=== PATIENT | female | born 1985 | race Caucasian/White ===

== ENCOUNTER → 2016-09-12 | Outpatient (CLI) | payer BC | LOC: ZCOL.LAB 15:00 | DX: R19.7 Diarrhea, unspecified (principal) ==

== ENCOUNTER → 2021-11-04 | Outpatient (CLI) | payer OTHER | LOC: COL.RAD 11:28 | DX: E04.1 Nontoxic single thyroid nodule (principal) ==

== ENCOUNTER → 2021-12-07 | Outpatient (CLI) | payer OTHER ==
[~2021-12-07] VITALS: Ht 170.2 cm; Wt 98.0 kg
[~2021-12-07] MED LIST: AMBIEN 5MG TABLE5 MG PO; FLOVENT 44MCG I13 GM IH; SINGULAIR 110 MG/TAB PO; XANAX 0.5MG0.5 MG PO; ZYRTEC 10MG10 MG PO
[2021-12-07 08:42] VITALS: BP 138/82; PULSE 79; TEMP 97.9
[2021-12-07 09:18] VITALS: BP 137/88; PULSE 72
== END ==
LOC: COL.RAD 11-25 11:15
DX: E04.2 Nontoxic multinodular goiter (principal)